=== PATIENT | female | born 1995 | race Caucasian/White ===

== ENCOUNTER 2016-06-24 07:57 | Emergency (ER) | payer BC ==
--- NOTE | 2016-06-24 08:07 | EDPHY ---
H & P Stated Complaint: n/v/d Time Seen by Provider: 06/24/16 08:07 - Personal History LMP (Females 10-55): 22-28 Days Ago Current Tetanus/Diphtheria Vaccine: Yes - Medical/Surgical History Hx Asthma: No Hx Chronic Respiratory Disease: No Hx Diabetes: No Hx Cardiac Disease: No Hx Renal Disease: No Hx Cirrhosis: No Hx Alcoholism: No Hx HIV/AIDS: No Hx Splenectomy or Spleen Trauma: No Other PMH: denies7 - Social History Smoking Status: Never smoked Constitutional: Initial Vital Signs Temperature (C) 36.8 C 06/24/16 08:00 Heart Rate 95 06/24/16 08:00 Respiratory Rate 20 06/24/16 08:00 Blood Pressure 139/87 H 06/24/16 08:00 O2 Sat (%) 99 06/24/16 08:00 O2 Delivery Mode Room Air Allergies/Adverse Reactions: No Known Allergies Allergy (Unverified 06/24/16 07:59) Home Medications: Medication Instructions Recorded NK [No Known Home Meds] 06/24/16 Medical Decision Making ED Course/Re-evaluation: CHIEF COMPLAINT: Nausea and vomiting HISTORY OF PRESENT ILLNESS: The patient is a healthy 21 y/o female presenting with acute onset nausea and vomiting onset about 12 hours ago, 3 hours after eating a pre-packaged turkey sandwich. She attributes her symptoms to food poisoning and has been unable to eat since onset. She denies abdominal pain, diarrhea, and fever though she does feel a bit chilled this morning. No pertinent medical history. REVIEW OF SYSTEMS: A 10 point review of systems was performed and is negative with the exception of the elements mentioned in the history of present illness. PHYSICAL EXAM: HR, BP, O2 Sat, RR. Temp noted General Appearance: Alert, appropriate, and non-toxic appearing. Not actively vomiting. Head: Atraumatic without scalp tenderness or obvious injury Eyes: Pupils equal, round, reactive to light and accommodation, EOMI, no trauma , no injection. Ears: Clear bilaterally, no perforation, normal landmarks Nose: Atraumatic, no rhinorrhea, clear. Throat: There is no erythema or exudates, no lesions, normal tonsils, mucus membranes dry. Neck: Supple, nontender, no lymphadenopathy. Respiratory: No retractions, no distress, no wheezes, and no accessory muscle use. Lungs are clear to auscultation bilaterally. Cardiovascular: Regular rate and rhythm, no murmurs, rubs, or gallops. Good capillary refill all extremities. Gastrointestinal: Abdomen is soft, nontender, non-distended, no masses, no rebound, no guarding, no peritoneal signs. Musculoskeletal: Normal active ROM of all extremities, atraumatic. Neurological: Alert, appropriate, and interactive. Neuro exam non-focal. Skin: No rashes, good turgor, no nodules on palpation. Past medical history: Denies Past surgical history: Denies Family history: non-contributory Social history: Student at DIFFERENTIAL DIAGNOSIS: The differential diagnosis for the patient's nausea and vomiting included but was not limited to infectious causes, foodborne illness gastroenteritis, gastritis, appendicitis, and medication side effect. MEDICAL DECISION MAKING: This is a normally healthy 21 y/o female who presents with a 12-hour history of nausea and vomiting after eating a prepackaged sandwich. She has been unable to tolerate PO since symptom onset. On exam, she has a completely benign abdomen, but her mucous membranes are dry indicating dehydration. Plan for symptom management with IV fluids and meds. 4 mg IV Zofran, 30 mg IV Toradol, and saline IV administered. Reevaluated patient. She is tolerating PO fluids without issue. Her abdomen remains benign. She is comfortable being discharged home at this time. She will receive a script for Zofran and standard follow up instructions for vomiting. She is comfortable with this plan. - Data Points Medications Given: Discontinued Medications Sodium Chloride (Ns) 1,000 mls @ 0 mls/hr IV ONCE ONE PRN Reason: Wide Open Stop: 06/24/16 08:16 Last Admin: 06/24/16 08:20 Dose: 1,000 mls Sodium Chloride (Ns) 1,000 mls @ 0 mls/hr IV ONCE ONE PRN Reason: Wide Open Stop: 06/24/16 08:16 Last Admin: 06/24/16 08:20 Dose: 1,000 mls Ketorolac Tromethamine (Toradol) 30 mg IVP EDNOW ONE Stop: 06/24/16 08:15 Last Admin: 06/24/16 08:19 Dose: 30 mg Ondansetron HCl (Zofran) 4 mg IVP EDNOW ONE Stop: 06/24/16 08:15 Last Admin: 06/24/16 08:21 Dose: 4 mg Ondansetron HCl (Zofran Odt 4 Mg Prepack#2) 1 btl TAKEAIRAM CHARLESNOW ONE Stop: 06/24/16 10:24 Last Admin: 06/24/16 10:35 Dose: 1 btl Departure - Departure Disposition: Home, Routine, Self-Care Clinical Impression: Dehydration Nausea & vomiting Qualifiers: Vomiting type: unspecified Vomiting Intractability: non-intractable Qualified Code(s): R11.2 - Nausea with vomiting, unspecified Condition: Good Instructions: Dehydration (ED), Acute Nausea and Vomiting (ED) Additional Instructions: 1. Take Zofran as prescribed when needed for nausea and vomiting. 2. Increase fluid intake. 3. Follow up with Primary Care Provider for unimproved symptoms over the next few days.\ 4. Return to Emergency Department for uncontrollable vomiting, high fever, severe abdominal pain, inability to keep fluids down, or other worsening of condition. Referrals: NONE *PRIMARY CARE P,. [Primary Care Provider] - As per Instructions [facility] [Clinic] - As per Instructions Report Scribed for: Alcon Shane Report Scribed by: Nael Godwin Date of Report: 06/24/16 Time of Report: 08:16
[2016-06-24] MEDS ORDERED: ONDANSETRON 4 MG/2 ML VIAL IVP ONE (08:14)
[2016-06-24] MEDS ORDERED: KETOROLAC 30 MG/1 ML SDV IVP ONE (08:14)
[2016-06-24] MEDS ORDERED: ONDANSETRON 4 MG/2 ML VIAL ONE (08:15)
[2016-06-24] MEDS ORDERED: NS 1,000 ML IV ONE ×2 (08:15)
[2016-06-24 08:29] VITALS: RESP 16
[2016-06-24] MEDS ORDERED: ONDANSETRON 4MG PREPACK#2 BTL TAKEHOME ONE ×2 (10:23→10:24)
[2016-06-24 10:35] VITALS: BP 108/76; PULSE 73; TEMP 97.6; O2SAT 98
== END 2016-06-24 10:31 | disposition home or self-care (01) ==
DX: E86.0 Dehydration (principal)
CPT/HCPCS: 96374; J1885; J2405

== ENCOUNTER 2017-07-19 20:33 | Emergency (ER) | payer BC, OTHER ==
[2017-07-19] MEDS ORDERED: MAG HYDROX/AL HYDROX/SIMETH 30 ML UDCUP PO ONE (21:01)
[2017-07-19] MEDS ORDERED: KETOROLAC 30 MG/1 ML SDV IVP ONE (21:01)
[2017-07-19] MEDS ORDERED: LIDOCAINE 2% VISCOUS 15 ML UDCUP PO ONE (21:01)
[2017-07-19] MEDS ORDERED: NS 1,000 ML IV ONE (21:01)
[2017-07-19] MEDS ORDERED: HYOSCYAMINE SULFATE 0.125 MG TAB PO ONE (21:01)
[2017-07-19] MEDS ORDERED: DEXAMETHASONE 10 MG/ML VIAL IVP ONE (21:01)
--- NOTE | 2017-07-19 21:07 | EDPHY ---
H & P Time Seen by Provider: 07/19/17 20:55 HPI/ROS: HPI Chest pain, throat tightness. 22-year-old female by private vehicle. This patient reports that at approximately 2:00 p.m. Today she developed pain which she describes as an aching sharp sensation mid chest associated with a sensation of tightness in her throat. She denies having a sore throat. She describes it as being lower and more down in her trachea. She has never had this before. She denies any associated shortness of breath. No palpitations. She was trying to sleep and took some units some who was not able to sleep because of this. She reports the pain is worse when she lays flat. It is better when she is sitting upright. Denies any foreign body inhalation or ingestion. ROS: Constitutional: No fever, no chills. No weakness. Eyes: No discharge. No changes in vision. ENT: No sore throat. No nasal congestion or rhinorrhea. As above. Respiratory: No cough. No shortness of breath. Cardiac: As above, no palpitations. Gastrointestinal: No abdominal pain, no vomiting, no diarrhea. Genitourinary: No hematuria. No dysuria or increased frequency with urination. Musculoskeletal: No back pain. No neck pain. No myalgias or arthralgias. Skin: No rashes. Neurological: No headache. No focal weakness or altered sensation. Past medical history: She denies any past medical history. She is not on any prescription medications. Social history: Nonsmoker. No alcohol. Here by herself. Physical Exam: General Appearance: Alert, no distress. This patient is responding to questions appropriately and in full sentences. This patient appears well- hydrated and well-nourished. Eyes: Pupils equal and round no pallor or injection. No lid edema, erythema or injection. ENT, Mouth: Mucous membranes are moist. The pharyngeal tissues are unremarkable. No edema or swelling. No asymmetry suggestive of abscess. No erythema or exudates. She has a intermittent scratchiness to her voice. No resting stridor. No stridor on auscultation of her neck. No cervical, submental, submandibular lymphadenopathy. Respiratory: There are no retractions, lungs are clear to auscultation with good air movement bilaterally. Cardiovascular: Regular rate and rhythm. No murmur appreciated. Neurological: Motor sensory function is grossly intact. Cranial nerves are normal. Gait is normal. Skin: Warm and dry, no rashes. Musculoskeletal: Neck is supple and nontender. Extremities are symmetrical. All joints range without pain or impingement. Psychiatric: No agitation. No depression. Database: EKG: EKG time is 721; EKG shows a narrow complex normal sinus rhythm with a ventricular rate of 80. The ND, QRS, QT intervals are within normal limits. There are no ST-T wave changes indicative of ischemic or injury pattern. No evidence of right heart strain. Interpreted by me. Imaging: Chest x-ray PA and lateral; the cardiac mediastinal silhouette is unremarkable. No evidence of infiltrate or pneumothorax. No acute cardiopulmonary disease process noted. Interpreted by me. Soft tissue neck x-ray series: Negative. This study was reviewed by myself. I also reviewed the radiologist's interpretation. Procedures: Emergency department course: Triage vital signs reviewed and are normal. IV was placed. She was started on IV normal saline with 500 cc to 1 L to be given over the next hour. Presentation is concerning for possible glottic verses epiglottic inflammation and possibly pericarditis myocarditis. She will be given a GI cocktail. She will be given 10 mg of IV Decadron and 30 mg of IV Toradol. She has no contraindications to NSAIDs. EKG obtained and reviewed by myself. X-ray imaging as above. 10:10 p.m., patient re-evaluated. She is resting comfortably at this time. She states that all of her symptoms have gone away. No resting stridor. No stridor on auscultation of her neck. She denies any tightness in her throat. Denies any chest pain or difficulty breathing. Results of her emergency department workup were discussed with her. She feels comfortable going home and she is requesting discharge. I feel she is safe for discharge at this time. Follow-up and return to emergency department precautions were thoroughly reviewed with her. All of her questions were answered. She was discharged from the emergency department in good condition. Differential Diagnosis: The differential diagnosis on this patient includes but is not limited to noncardiac chest pain, GERD. Myocarditis, pericarditis, epiglottitis, upper airway foreign body, mononucleosis, streptococcal pharyngitis, peritonsillar abscess, retropharyngeal abscess, tracheitis unlikely. This represents a partial list of diagnoses considered. These considerations are based on history , physical exam, past history, reassessment and diagnostic testing. Smoking Status: Never smoked Constitutional: Initial Vital Signs Temperature (C) 36.8 C 07/19/17 20:40 Heart Rate 74 07/19/17 20:40 Respiratory Rate 16 07/19/17 20:40 Blood Pressure 117/81 H 07/19/17 20:40 O2 Sat (%) 98 07/19/17 20:40 O2 Delivery Mode Room Air Allergies/Adverse Reactions: No Known Allergies Allergy (Verified 07/19/17 20:42) Home Medications: Medication Instructions Recorded NK [No Known Home Meds] 06/24/16 Medical Decision Making - Diagnostics Imaging Results: Imaging Impressions Chest X-Ray 07/19/17 21:02 Impression: No significant radiographic abnormality. Specifically, a source for chest pain is not identified. Soft Tissue Neck X-Ray 07/19/17 21:03 Impression: 1. Cervical soft tissues negative for acute abnormality. 2. Query muscle spasm. - Data Points Laboratory Results: Laboratory Results 07/19/17 21:24 07/19/17 21:24 07/19/17 07/19/17 07/19/17 21:29 21:24 21:24 WBC 8.08 10^3/uL 10^3/uL (3.80-9.50) RBC 4.77 10^6/uL 10^6/uL (4.18-5.33) Hgb 14.5 g/dL g/dL (12.6-16.3) Hct 42.5 % % (38.0-47.0) MCV 89.1 fL fL (81.5-99.8) MCH 30.4 pg pg (27.9-34.1) MCHC 34.1 g/dL g/dL (32.4-36.7) RDW 12.3 % % (11.5-15.2) Plt Count 331 10^3/uL 10^3/uL (150-400) MPV 8.3 fL L fL (8.7-11.7) Neut % (Auto) 56.9 % % (39.3-74.2) Lymph % (Auto) 32.7 % % (15.0-45.0) Marshall % (Auto) 7.7 % % (4.5-13.0) Eos % (Auto) 1.5 % % (0.6-7.6) Baso % (Auto) 1.0 % % (0.3-1.7) Nucleat RBC Rel Count 0.0 % % (0.0-0.2) Absolute Neuts (auto) 4.60 10^3/uL 10^3/uL (1.70-6.50) Absolute Lymphs (auto) 2.64 10^3/uL 10^3/uL (1.00-3.00) Absolute Monos (auto) 0.62 10^3/uL 10^3/uL (0.30-0.80) Absolute Eos (auto) 0.12 10^3/uL 10^3/uL (0.03-0.40) Absolute Basos (auto) 0.08 10^3/uL 10^3/uL (0.02-0.10) Absolute Nucleated RBC 0.00 10^3/uL 10^3/uL (0-0.01) Immature Gran % 0.2 % % (0.0-1.1) Immature Gran # 0.02 10^3/uL 10^3/uL (0.00-0.10) Sodium 142 mEq/L mEq/L (135-145) Potassium 3.9 mEq/L mEq/L (3.3-5.0) Chloride 103 mEq/L mEq/L (97-110) Carbon Dioxide 24 mEq/l mEq/l (22-31) Anion Gap 15 mEq/L mEq/L (8-16) BUN 16 mg/dL mg/dL (7-23) Creatinine 0.7 mg/dL mg/dL (0.6-1.0) Estimated GFR > 60 Glucose 79 mg/dL mg/dL (70-100) Calcium 9.8 mg/dL mg/dL (8.5-10.4) POC Troponin I 0.00 ng/mL ng/mL (0.00-0.08) Medications Given: Discontinued Medications Al Hydroxide/Mg Hydroxide (Maalox Susp) 30 ml PO ONCE ONE Stop: 07/19/17 21:02 Last Admin: 07/19/17 21:25 Dose: 30 ml Dexamethasone (Decadron Injection) 10 mg IVP EDNOW ONE Stop: 07/19/17 21:02 Last Admin: 07/19/17 21:25 Dose: 10 mg Hyoscyamine Sulfate (Levsin, Hyomax-Sl) 0.25 mg PO ONCE ONE Stop: 07/19/17 21:02 Last Admin: 07/19/17 21:26 Dose: 0.25 mg Sodium Chloride (Ns) 1,000 mls @ 0 mls/hr IV ONCE ONE; Wide Open PRN Reason: Protocol Stop: 07/19/17 21:02 Last Admin: 07/19/17 21:24 Dose: 1,000 mls Ketorolac Tromethamine (Toradol) 30 mg IVP EDNOW ONE Stop: 07/19/17 21:02 Last Admin: 07/19/17 21:25 Dose: 30 mg Lidocaine (Lidocaine 2% Viscous) 15 ml PO ONCE ONE Stop: 07/19/17 21:02 Last Admin: 07/19/17 21:25 Dose: 15 ml Point of Care Test Results: Chemistry 07/19/17 21:29 POC Troponin I 0.00 ng/mL ng/mL (0.00-0.08) Departure - Departure Disposition: Home, Routine, Self-Care Clinical Impression: Chest pain, Throat tightness Condition: Good Instructions: Chest Pain (ED) Additional Instructions: Read and follow provided instructions. Follow-up with your primary care physician tomorrow for re-evaluation. Keep well hydrated. Return to the emergency department a sensation of tightness in your throat, closing of your throat, voice changes, stridor, return of chest pain, shortness of breath or other serious concerns. Referrals: NONE *PRIMARY CARE P,. [Primary Care Provider] - As per Instructions
--- NOTE | 2017-07-19 21:22 | CPEKG ---
Heart Rate: 80 RR Interval: 750 P-R Interval: 160 QRSD Interval: 84 QT Interval: 376 QTC Interval: 434 P Lem[place]: 53 QRS [place]: 47 T Wave [place]: 32 EKG Severity - NORMAL ECG - EKG Impression: SINUS RHYTHM Electronically Signed By: Racheal Cueva 19-Jul-2017 22:21:45
[2017-07-19 21:37] LABS: PLATELET COUNT 331 10^3/uL (150-400)
[2017-07-19 22:11] VITALS: BP 128/72
== END 2017-07-19 22:22 | disposition home or self-care (01) ==
DX: R07.9 Chest pain, unspecified (principal); R09.89 Other specified symptoms and signs involving the circulatory and respiratory systems; E86.9 Volume depletion, unspecified
CPT/HCPCS: 84484-PO; 96374; J1100; J1885